=== PATIENT | male | born 1940 | race Caucasian/White ===

== ENCOUNTER 2016-10-18 14:44 | Inpatient (IN) | payer MEDICARE, BC ==
[~2016-10-18 14:44] MED LIST: ACTONEL150 MG PO; ASPIRIN E.C. 8181 MG PO; AVODART0.5 MG PO; BENICAR HCT 12.1 TAB PO; CALCIUM + D 6001 TAB PO; COLACE100 MG PO; CRESTOR10 MG PO; FERROUS SU325 MG/TAB PO; FLOMAX0.4 MG PO; FOLIC ACID PO; FOSAMAX 70MG TA70 MG PO; HYZAAR 50-12.1 UDTAB PO; JANTOVEN3 MG PO; JANTOVEN4 MG PO; LORTAB 5/500 501 TAB; SEPTRA DS 8001 TAB PO; SIMVASTATIN40 MG PO; VITAMIN C BUFF500 MG PO; VITAMIN C500 MG PO; WARFARIN2 MG PO; ZOCOR 40MG40 MG PO
[2016-12-18] VITALS (11 sets, daily range): BP systolic 109–152; BP diastolic 53–95; PULSE 54–88; TEMP 97.9–99.1
[2016-12-18] MEDS ORDERED: FLOMAX 0.40.4 MG/CAP PO (07:40)
[2016-12-18] MEDS ORDERED: VITAMIN D1000 IU PO (07:43)
[2016-12-19] VITALS (8 sets, daily range): BP systolic 115–137; BP diastolic 60–74; PULSE 62–89; TEMP 97.8–100.7
[2016-12-19 07:32] LABS: HEMATOCRIT 38.4 % (42.0-52.0); HEMOGLOBIN 12.1 g/dl (13.5-18.0)
[2016-12-19 08:13] LABS: INR 1.3 (0.8-3.0); PROTHROMBIN TIME 14.4 SECONDS (9.7-12.8)
[2016-12-19] MEDS ORDERED: JANTOVEN3 M1 PO (21:47)
[2016-12-19] MEDS ORDERED: CALCIUM 600MG+D1 TAB PO (21:48)
[2016-12-20 00:21] VITALS: BP 119/71; PULSE 60; TEMP 97.9
[2016-12-20 04:00] VITALS: BP 141/74; PULSE 79; TEMP 98.3
[2016-12-20 07:22] LABS: INR 1.6 (0.8-3.0); PROTHROMBIN TIME 17.5 SECONDS (9.7-12.8)
[2016-12-20 07:23] LABS: HEMOGLOBIN 12.5 g/dl (13.5-18.0)
[2016-12-20 07:29] VITALS: BP 127/77; PULSE 83
== END 2016-12-20 12:00 | disposition home or self-care (01) | DRG 465 ==
LOC: JCC 12-18 06:34
PROVIDERS: Orthopaedic Surgery
PROC: 0SPC09Z Removal of Liner from Right Knee Joint, Open Approach (ICD-10-PCS; 2016-12-18)
PROC: 0SUC09C Supplement Right Knee Joint with Liner, Patellar Surface, Open Approach (ICD-10-PCS; principal; 2016-12-18 11:00)
DX: T84.022A Instability of internal right knee prosthesis, initial encounter (principal); M17.11 Unilateral primary osteoarthritis, right knee; R33.9 Retention of urine, unspecified
CPT/HCPCS: A4315; A9284; C1713; C1776; J0690; J2250; J2405; J2704; J3010

== ENCOUNTER → 2016-12-14 | Outpatient (CLI) | payer MEDICARE, BC ==
[~2016-12-14] MED LIST changes: +CALCIUM 600MG+D1 TAB PO; +FLOMAX 0.40.4 MG/CAP PO; +JANTOVEN3 M1 PO; +VITAMIN D1000 IU PO
[2016-12-14 16:40] LABS: INR 1.3 (0.8-3.0); PROTHROMBIN TIME 14.2 SECONDS (9.7-12.8)
[2016-12-14 17:19] LABS: HIV 1/2 Antibodies Non-Reactive; HIV-1p24 Antigen Non-Reactive
== END ==
LOC: COL.LAB 15:39
PROVIDERS: Orthopaedic Surgery
DX: Z79.01 Long term (current) use of anticoagulants (principal); M25.861 Other specified joint disorders, right knee

== ENCOUNTER 2018-03-24 19:56 | Emergency (ER) | payer MEDICARE, BC ==
[~2018-03-24] VITALS: Ht 170.2 cm; Wt 90.9 kg
[2018-03-24 20:03] VITALS: TEMP 98.6
[2018-03-24 20:29] LABS: BASO # 0.1 (0.0-0.2); BASO % 0.5 % (0.0-2.0); EOS # 0.3 (0.0-0.7); EOS % 2.9 % (0-4.0); GRAN # 5.5 (1.4-6.5); HEMATOCRIT 40.2 % (42.0-52.0); HEMOGLOBIN 13.5 g/dl (13.5-18.0); LYMPH # 4.2 (1.2-3.4); LYMPH % 37.3 % (20.0-51.0); MEAN CELL VOLUME 87 fl (80.0-100.0); MEAN CORPUSCULAR HEMOGLOBIN 29 pg (27.0-31.0); MEAN CORPUSCULAR HGB CONC 34 g/dl (33.0-37.0); MEAN PLATELET VOLUME 9.8 fl (7.4-10.4); MONO # 1.1 (0.1-0.6); PLATELET COUNT 176 K/mm3 (130-400); RED BLOOD COUNT 4.64 M/mm3 (4.20-5.60); REDCELL DISTRIBUTION WIDTH-CV 13.5 % (11.5-14.5)
[2018-03-24] MEDS ORDERED: COUMADIN4 MG PO (20:32)
[2018-03-24] MEDS ORDERED: COUMADIN 3MG3 MG/TAB PO (20:32)
[2018-03-24] MEDS ORDERED: NIACIN 100100 MG/TAB (20:39)
[2018-03-24 20:40] LABS: ALANINE AMINOTRANSFERASE 27 U/L (21-72); ALBUMIN 4.1 gm/dL (3.5-5.0); ALKALINE PHOSPHATASE 40 U/L (50-136); ANION GAP 11 mmol/L (7-16); AST,SGOT 25 U/L (15-37); BILIRUBIN,TOTAL 1.4 mg/dL (0.0-1.0); BLOOD UREA NITROGEN 24 mg/dL (9-20); C-REACTIVE PROTEIN < 0.5 mg/dL (0.0-0.9); CALCIUM 9.7 mg/dL (8.4-10.2); CARBON DIOXIDE 27 mmol/L (22-30); CHLORIDE 103 mmol/L (98-107); CREATININE, serum 0.89 mg/dL (0.66-1.25); GLUCOSE 148 mg/dL (74-106); POTASSIUM 3.7 mmol/L (3.4-5.0); SODIUM 142 mmol/L (137-145); TOTAL PROTEIN 7.1 gm/dL (6.4-8.2)
[2018-03-24 20:49] LABS: INR 2.5 (0.8-3.0); PROTHROMBIN TIME 28.9 SECONDS (9.7-12.8)
[2018-03-24 20:52] LABS: PARTIAL THROMBOPLASTIN TIME 41.6 SECONDS (26.0-37.0)
[2018-03-24 20:54] LABS: ERYTHROCYTE SEDIMENTATION RATE 1 mm/hr (0-30)
[2018-03-24 21:25] VITALS: BP 134/86; PULSE 81
== END 2018-03-24 21:25 | disposition home or self-care (01) ==
LOC: COL.ER 19:56
PROVIDERS: Emergency Medicine
DX: M25.461 Effusion, right knee (principal); I10 Essential (primary) hypertension; N40.0 Benign prostatic hyperplasia without lower urinary tract symptoms; Z86.718 Personal history of other venous thrombosis and embolism; Z95.828 Presence of other vascular implants and grafts; Z98.890 Other specified postprocedural states; Z79.01 Long term (current) use of anticoagulants; Z79.82 Long term (current) use of aspirin

== ENCOUNTER → 2018-03-26 | Outpatient (CLI) | payer MEDICARE, BC ==
[~2018-03-26] MED LIST changes: +COUMADIN 3MG3 MG/TAB PO; +COUMADIN4 MG PO; +NIACIN 100100 MG/TAB
== END ==
LOC: COL.VAS 14:20
DX: I87.2 Venous insufficiency (chronic) (peripheral) (principal)

== ENCOUNTER 2019-08-01 13:59 | Outpatient (CLI) | payer MEDICARE, OTHER ==
[~2019-08-01] VITALS: Ht 170.2 cm; Wt 95.5 kg
[2019-08-01 14:17] VITALS: BP 123/68; PULSE 60; TEMP 97.7
== END 2019-08-01 15:30 | disposition home or self-care (01) ==
LOC: EUO 13:59
DX: M81.0 Age-related osteoporosis without current pathological fracture (principal)
CPT/HCPCS: J0897

== ENCOUNTER 2020-05-15 20:02 | Emergency (ER) | payer MEDICARE, OTHER ==
[~2020-05-15] VITALS: Ht 172.7 cm; Wt 90.9 kg
[2020-05-15 20:09] VITALS: TEMP 98.3
[2020-05-15 21:05] LABS: INR 2.9 (0.8-3.0); PROTHROMBIN TIME 33.2 SECONDS (9.7-12.8)
[2020-05-15 21:08] LABS: ALBUMIN 4.3 gm/dL (3.5-5.0); BILIRUBIN,TOTAL 1.1 mg/dL (0.0-1.0); CALCIUM 8.7 mg/dL (8.4-10.2); CREATININE, serum 1.03 (0.66-1.25); POTASSIUM 3.9 mmol/L (3.4-5.0); TOTAL PROTEIN 7.4 gm/dL (6.4-8.2)
[2020-05-15 21:30] LABS: COLLECTION METHOD CATHETER
[2020-05-15] MEDS ORDERED: CITRACAL-D3 ER1 EACH PO (21:36)
[2020-05-15] MEDS ORDERED: PROLIA60 MG/ML SQ (21:36)
[2020-05-15] MEDS ORDERED: ULTRAM 50MG TAB50 MG PO (21:37)
[2020-05-15] MEDS ORDERED: EPITOL (21:37)
[2020-05-15 21:39] LABS: MUCOUS Present /lpf; PH 5 (5-8); SQUAMOUS EPITHELIAL 0-2 /hpf; URINE APPEARANCE Hazy; URINE BACTERIA None Seen /hpf; URINE BILIRUBIN Negative (NEGATIVE); URINE BLOOD 3+ (NEGATIVE); URINE COLOR Amber; URINE GLUCOSE Negative (NEGATIVE); URINE KETONE Negative (NEGATIVE); URINE LEUKOCYTE ESTERASE Negative (NEGATIVE); URINE NITRATE Negative (NEGATIVE); URINE PROTEIN(semi-quant) 2+ (NEGATIVE); URINE RBC >50 /hpf; URINE UROBILINOGEN Negative (NEGATIVE)
[2020-05-15 22:01] VITALS: BP 135/82; PULSE 83
== END 2020-05-15 22:06 | disposition home or self-care (01) ==
LOC: COL.ER 20:02
PROVIDERS: Family Medicine
DX: R31.9 Hematuria, unspecified (principal); R33.9 Retention of urine, unspecified; I48.91 Unspecified atrial fibrillation; G50.0 Trigeminal neuralgia; Z79.01 Long term (current) use of anticoagulants; Z79.82 Long term (current) use of aspirin

== ENCOUNTER 2020-11-10 07:26 | Day surgery (SDC) | payer MEDICARE, OTHER ==
[~2020-11-10] VITALS: Ht 170.2 cm; Wt 95.6 kg
[~2020-11-10 07:26] MED LIST changes: +CITRACAL-D3 ER1 EACH PO; +EPITOL; +PROLIA60 MG/ML SQ; +ULTRAM 50MG TAB50 MG PO
[2020-11-10] MEDS ORDERED: COUMADIN 3MG3 MG/TAB PO (07:56)
[2020-11-10] MEDS ORDERED: VITAMIND3 5000 PO (07:59)
[2020-11-10] MEDS ORDERED: VITAMIN FLUSH-F1 CAP PO (08:00)
[2020-11-10] MEDS ORDERED: CITRACAL PO (08:01)
[2020-11-10 08:35] VITALS: BP 133/74; PULSE 78; TEMP 98.4
[2020-11-10] MEDS ORDERED: ULTRAM 50MG TAB50 MG PO (10:26)
[2020-11-10 10:47] VITALS: TEMP 97.7
[2020-11-10 11:05] VITALS: BP 129/81; PULSE 67
--- NOTE | 2020-11-10 11:05 | NUR ---
Patient returns to room 7 per cart from PACU accompanied by Nila NEVILLE and is awake and alert. Denies pain or nausea. IV fluids infusing and site is free of redness. Temp 97.9 and room air sats 93%. Taking orange juice. Siderails up x2 and call light in reach. Gauze dressing dry on the umbilical area.
[2020-11-10 11:20] VITALS: BP 133/82; PULSE 71
--- NOTE | 2020-11-10 11:20 | NUR ---
Eating toast and sipping on juice. Continues to deny pain or nausea.
[2020-11-10 11:35] VITALS: BP 134/79; PULSE 64
--- NOTE | 2020-11-10 11:35 | NUR ---
Room air sats 99%. Resting with no complaints of discomfort.
[2020-11-10 11:50] VITALS: BP 136/87; PULSE 72
--- NOTE | 2020-11-10 11:50 | NUR ---
Drinking water and tolerated toast. Continues to deny pain or nausea.
--- NOTE | 2020-11-10 12:00 | NUR ---
Assisted up to the bathroom and gait steady. Able to void and returns to room with standby assist.
--- NOTE | 2020-11-10 12:05 | NUR ---
IV discontinued and site is free of redness. Site covered with coban.
--- NOTE | 2020-11-10 12:15 | NUR ---
Patient dresses self. Dressing remains dry on the umbilical area.
--- NOTE | 2020-11-10 12:25 | NUR ---
Dismissal instructions given and voices understanding of these. Provided follow up appointment date and time. Informed that [facility].
--- NOTE | 2020-11-10 12:28 | NUR ---
Patient dismissed to home driven by spouse and taken to the front door per wheelchair with instructions in hand and assisted into vehicle.
== END 2020-11-10 12:28 | disposition home or self-care (01) ==
LOC: SDCO 07:26
DX: K42.0 Umbilical hernia with obstruction, without gangrene (principal); C91.10 Chronic lymphocytic leukemia of B-cell type not having achieved remission; C44.90 Unspecified malignant neoplasm of skin, unspecified; E78.00 Pure hypercholesterolemia, unspecified; I10 Essential (primary) hypertension; N40.0 Benign prostatic hyperplasia without lower urinary tract symptoms; Z20.822 Contact with and (suspected) exposure to COVID-19; Z86.718 Personal history of other venous thrombosis and embolism; Z79.01 Long term (current) use of anticoagulants; Z79.899 Other long term (current) drug therapy; Z88.1 Allergy status to other antibiotic agents; Z95.828 Presence of other vascular implants and grafts
CPT/HCPCS: C1781; J0690; J1100; J2370; J2405; J2704; J3010; J7120

== ENCOUNTER 2021-11-07 12:50 | Outpatient (CLI) | payer MEDICARE, OTHER ==
[~2021-11-07] VITALS: Ht 170.2 cm; Wt 96.1 kg
[~2021-11-07 12:50] MED LIST changes: +CITRACAL PO; +VITAMIN FLUSH-F1 CAP PO; +VITAMIND3 5000 PO
[2021-11-07 13:11] VITALS: BP 145/78; PULSE 83; TEMP 97.5
[2021-11-07] MEDS ORDERED: CITRACAL-D3 ER1 EACH PO (13:39)
[2021-11-07] MEDS ORDERED: COUMADIN4 MG PO (13:40)
== END 2021-11-07 14:45 | disposition home or self-care (01) ==
LOC: EUO 12:50
DX: M81.0 Age-related osteoporosis without current pathological fracture (principal)
CPT/HCPCS: J0897

== ENCOUNTER 2022-05-15 14:45 | Outpatient (CLI) | payer MEDICARE, OTHER ==
[~2022-05-15] VITALS: Ht 170.2 cm; Wt 92.7 kg
[2022-05-15 15:18] VITALS: BP 117/75; PULSE 64; TEMP 98.1
[2022-05-15] MEDS ORDERED: VITAMIN C500 MG PO (15:39)
--- NOTE | 2022-05-15 15:42 | NUR ---
Pt escorted out to elevator. Gait steady. He tolerated prolia without issue.
== END 2022-05-15 15:43 | disposition home or self-care (01) ==
LOC: EUO 14:45
DX: M81.0 Age-related osteoporosis without current pathological fracture (principal)
CPT/HCPCS: J0897

== ENCOUNTER 2022-11-20 14:48 | Outpatient (CLI) | payer MEDICARE, OTHER ==
[~2022-11-20] VITALS: Ht 170.2 cm; Wt 93.3 kg
[~2022-11-20 14:48] MED LIST changes: +NIACIN250 M2 PO; -VITAMIN FLUSH-F1 CAP PO
[2022-11-20 15:07] VITALS: BP 127/81; PULSE 59; TEMP 97.7
== END 2022-11-20 15:40 | disposition home or self-care (01) ==
LOC: EUO 14:48
DX: M81.0 Age-related osteoporosis without current pathological fracture (principal)
CPT/HCPCS: J0897

== ENCOUNTER → 2023-01-05 | Outpatient (REF) | payer MEDICARE, OTHER ==
[2023-01-05 12:19] LABS: LYMPHOCYTE 90 % (20.0-51.0); NEUTROPHILS 4 % (42.0-75.2)
[2023-01-05 12:21] LABS: PLATELET ESTIMATE NORMAL (NORMAL)
[2023-01-05 12:22] LABS: BURR CELLS 1+; SCHISTOCYTES 2+
[2023-01-05 12:23] LABS: HEMATOCRIT 40.4 % (42.0-52.0); MEAN CELL VOLUME 90 fl (80.0-100.0); MEAN CORPUSCULAR HEMOGLOBIN 29 pg (27-31); MEAN CORPUSCULAR HGB CONC 32 g/dl (33.0-37.0); MEAN PLATELET VOLUME 11.9 fl (7.4-10.4); PLATELET COUNT 183 K/mm3 (130-400); RED BLOOD COUNT 4.49 M/mm3 (4.20-5.60); REDCELL DISTRIBUTION WIDTH-CV 14.6 % (11.5-14.5)
[2023-01-08 08:48] LABS: PATHOLOGY DIFF REVIEW OK +
== END ==
LOC: ZCOL.LAB 11:34
PROVIDERS: Family Medicine
DX: C91.10 Chronic lymphocytic leukemia of B-cell type not having achieved remission (principal)

== ENCOUNTER → 2023-10-30 | Outpatient (REF) | payer MEDICARE, OTHER ==
[2023-10-30 14:54] LABS: ANISOCYTOSIS 1+; EOSINOPHIL 1 % (0-4); NEUTROPHILS 6 % (42.0-75.2); PLATELET ESTIMATE NORMAL (NORMAL)
[2023-10-30 14:55] LABS: HYPOCHROMIA 3+
[2023-10-30 15:02] LABS: BAND 2 % (0-10); LYMPHOCYTE 78 % (20.0-51.0)
== END ==
LOC: ZCOL.LAB 12:08
PROVIDERS: Family Medicine
DX: C91.10 Chronic lymphocytic leukemia of B-cell type not having achieved remission (principal)

== ENCOUNTER → 2023-12-25 | Outpatient (REF) | payer MEDICARE, OTHER ==
[2023-12-25 23:15] LABS: BASOPHIL 1 % (0-2); EOSINOPHIL 1 % (0-4); LYMPHOCYTE 82 % (20.0-51.0); NEUTROPHILS 1 % (42.0-75.2); NUCLEATED RED BLOOD CELL 5 (0-6)
[2023-12-26 07:58] LABS: PATHOLOGY DIFF REVIEW OK +
== END ==
LOC: ZCOL.LAB 13:01
PROVIDERS: Family Medicine
DX: C91.10 Chronic lymphocytic leukemia of B-cell type not having achieved remission (principal)